=== PATIENT | female | born 2000 | race African-American/Black ===

== ENCOUNTER 2023-10-22 19:28 | Emergency (ER) | payer OTHER, SELFPAY ==
[2023-10-22 19:42] VITALS: BP 140/87; BP 145/90; PULSE 82; PULSE 94; RESP 18; TEMP 36.9; O2SAT 99; BMI 39.5
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
== END 2023-10-22 21:55 | disposition home or self-care (01) ==
PROVIDERS: Emergency Provider Student in an Organized Health Care Education/Training Program
DX: S09.90XA Unspecified injury of head, initial encounter (principal); V43.52XA Car driver injured in collision with other type car in traffic accident, initial encounter; X37.2XXA Blizzard (snow)(ice), initial encounter; Y93.9 Activity, unspecified; Y92.410 Unspecified street and highway as the place of occurrence of the external cause; Y99.9 Unspecified external cause status; R51.9 Headache, unspecified
CPT/HCPCS: 99283